=== PATIENT | male | born 1980 | race Caucasian/White ===

== ENCOUNTER 2025-01-02 21:57 | Emergency (ER) | payer MEDICAID ==
[2025-01-02] MEDS: Lidocaine 1% 20 ML MDV INJECT ONE (23:07)
[2025-01-02 23:12] LABS: BASE EXCESS VENOUS -16.9 mm/L; BICARBONATE,VENOUS 21.8 mmol/L; CARBOXYHEMOGLOBIN 2.5 % (0.0-1.6); METHEMOGLOBIN 0.9 %; O2 SATURATION VENOUS < 4.5; PH,VENOUS 6.942 (7.350-7.450); TOTAL HEMOGLOBIN 18.3 g/dL (13.5-18.0)
[2025-01-02 23:15] LABS: OXYHEMOGLOBIN < 2.0 %; PCO2 VENOUS 106 mm/Hg; PO2 VENOUS 2.5 mm/Hg
[2025-01-03] MEDS: Phenylephrine 1% 10 MG/ML SDV IM ONE (00:43)
[2025-01-03] MEDS: Ketorolac 30 MG/ML SDV IM ONE (00:49)
== END 2025-01-03 01:21 | disposition home or self-care (01) ==
LOC: JP.ED 21:57
DX: N48.30 Priapism, unspecified (principal); Z79.899 Other long term (current) drug therapy
CPT/HCPCS: 82803; 96372; 99283; J1885; J2371